=== PATIENT | female | born 1990 | race Caucasian/White ===

== ENCOUNTER 2017-03-13 17:29 | Day surgery (SDC) | payer SELFPAY ==
[2017-03-13] MEDS ORDERED: OCELLA1 TAB PO (18:13)
[2017-03-13] MEDS ORDERED: CITALOPRAM40 MG PO (18:13)
[2017-03-13] MEDS ORDERED: ZOFRAN ODT4 MG PO (18:14)
[2017-03-13] MEDS ORDERED: BENTYL10 MG PO (18:14)
[2017-03-13] MEDS ORDERED: DOXYCYCL HYC100 M4 PO (18:15)
[2017-03-13] MEDS ORDERED: NEXIUM40 M1 PO ×3 (18:16→19:29)
[2017-03-13] MEDS ORDERED: ZANAFLEX4 MG PO (18:17)
[2017-03-13] MEDS ORDERED: CARAFATE1 GM/10 ML PO (19:26)
[2017-03-13] MEDS ORDERED: VALACYCLOVIR H500 MG PO (19:26)
[2017-03-13 20:01] VITALS: BP 97/61
== END 2017-03-13 19:55 | disposition home or self-care (01) | DRG 392 ==
LOC: ORM 17:29 → ENDO 17:29 → ORM 19:55
PROVIDERS: ATTEND Surgery
PROC: 0DB48ZX Excision of Esophagogastric Junction, Via Natural or Artificial Opening Endoscopic, Diagnostic (ICD-10-PCS; principal; 2017-03-13)
PROC: 0DB68ZX Excision of Stomach, Via Natural or Artificial Opening Endoscopic, Diagnostic (ICD-10-PCS; 2017-03-13)
DX: R13.10 Dysphagia, unspecified (principal); K25.9 Gastric ulcer, unspecified as acute or chronic, without hemorrhage or perforation; R11.2 Nausea with vomiting, unspecified; K12.1 Other forms of stomatitis; K21.0 Gastro-esophageal reflux disease with esophagitis; K29.50 Unspecified chronic gastritis without bleeding